=== PATIENT | female | born 1980 | race African-American/Black ===

== ENCOUNTER 2018-12-19 13:24 | Emergency (ER) | payer MEDICAID, OTHER ==
[~2018-12-19] VITALS: Ht 177.8 cm; Wt 107.0 kg
[2018-12-19 13:32] VITALS: BP 132/85
== END 2018-12-19 16:16 | disposition left against medical advice (07) ==
LOC: ER 13:24
DX: Z53.21 Procedure and treatment not carried out due to patient leaving prior to being seen by health care provider (principal); F41.9 Anxiety disorder, unspecified

== ENCOUNTER 2018-12-20 09:53 | Emergency (ER) | payer SELFPAY ==
[~2018-12-20] VITALS: Ht 177.8 cm; Wt 118.0 kg
[2018-12-20 10:34] VITALS: BP 148/83
[2018-12-20] MEDS ORDERED: ACETAMINOPHEN 325MG TABLET PO ONE (10:45)
== END 2018-12-20 12:06 | disposition home or self-care (01) ==
LOC: ER 09:53
DX: J06.9 Acute upper respiratory infection, unspecified (principal); R50.81 Fever presenting with conditions classified elsewhere; F41.9 Anxiety disorder, unspecified; F17.200 Nicotine dependence, unspecified, uncomplicated
CPT/HCPCS: 71045; 99283